=== PATIENT | male | born 1980 | race African-American/Black ===

== ENCOUNTER 2020-08-06 02:46 | Emergency (ER) | payer OTHER, BC, SELFPAY ==
--- NOTE | ~2020-08-06 | CT_ITS ---
EXAMINATION: CT abdomen pelvis wo con DATE: 08/06/2020 04:18 INDICATION: Right flank pain. Hematuria. TECHNIQUE: Computed tomography (CT) of the abdomen and pelvis was performed without intravenous contr ast. The dose-length product was 201.53 mGy-cm. Automated exposure control and iterative reconstructi on technique were employed. COMPARISON: None. FINDINGS: Lung bases are unremarkable. No significant pleural or pericardial effusion. Heart size is normal. The liver, spleen, pancreas, adrenal glands and kidneys are unremarkable. Gallbladder is pres ent. Nonobstructive bowel gas pattern. No abnormal pelvic masses or fluid collections. Normal appendi x. No renal stones or hydronephrosis. Mild lumbar spondylosis. There is disc bulge at L5-S1 with bila teral neural foraminal stenosis. IMPRESSION: 1. No acute abdominal abnormality. Reviewed, dictated and finalized at location B.
[2020-08-06 02:49] VITALS: BP 133/93; PULSE 68; RESP 17; TEMP 35.9; O2SAT 100
[2020-08-06 03:49] LABS: Add Urine Microscopic? YES; Appearance Urine Clear (Clear); Bilirubin Urine Negative (Negative); Blood Urine Negative (Negative); Color Urine Yellow (Yellow); Glucose Urine UA Negative (Negative); Ketones Urine Negative (Negative); Leukocyte Esterase Ur Negative LEU/UL (Negative); Mucus Urine Rare /lpf; Nitrate Urine Negative (Negative); Protein Urine Negative (Negative); RBC Urine 0-2 /hpf (0-2); Specific Grav Ur 1.018 (1.001-1.035); Squamous Epithelial Cell Urine Rare /hpf (Few); WBC Urine 0-3 /hpf
--- NOTE | 2020-08-06 03:53 | ED.MALEGU ---
HPI - Male Genitourinary General Chief complaint: Urogenital-Male Stated complaint: kidney pain; dark urine Time Seen by Provider: 08/06/20 03:12 History of Present Illness HPI Narrative: Severe right thoracic back pain for the past 2 days. worse for the past day. Exacerbated by movement. Associated with dark urine. No fever, dysuria, trauma, weakness, numbness. Related Data Allergies Allergy/AdvReac Type Severity Reaction Status Date / Time No Known Allergies Allergy Unverified 08/06/20 02:53 Review of Systems Review of Systems: All systems reviewed & are unremarkable except as noted in HPI and below Constitutional: Constitutional: Denies chills and Denies fever(s) Cardiovascular: Cardiovascular: Denies chest pain Respiratory: Respiratory: Denies dyspnea Gastrointestinal: Gastrointestinal: Denies abdominal pain, Denies nausea and Denies vomiting Genitourinary: Genitourinary: Denies dysuria Musculoskeletal: Musculoskeletal: Reports back pain Neurologic: Denies numbness and Denies weakness [facility] Social History Social History Gender identity (if verbalized by the patient): Male Exam Const: General: healthy appearing, no acute distress and alert Orientation/consciousness: patient oriented x3 HENMT: Head: normal to inspection Neck: Neck: normal visual inspection and no lymphadenopathy Chest: Chest palpation & inspection: no tenderness Resp: Effort & Inspection: normal respiratory effort Auscultation: clear to auscultation bilaterally, no rales, no rhonchi and no wheezes Cardio: Jugular venous distension: no JVD Rate: regular rate Rhythm: regular rhythm Heart sounds: no murmurs GI: Inspection: non-distended GI Palp: Yes Soft to palpation and No Tenderness to palpation present (GI) Back/Spine/Pelvis: Back: CVA tenderness (right) Skin: General skin exam: normal color Neuro: General: patient oriented x3 and moves all extremities Speech: normal speech Extrem: General: no edema Psych: Appearance: well kempt Affect: normal affect Course Vital Signs Vital signs: Vital Signs Temperature 35.9 C L 08/06/20 02:49 Pulse Rate 68 08/06/20 02:49 Respiratory Rate 17 08/06/20 02:49 Blood Pressure 133/93 H 08/06/20 02:49 Pulse Oximetry 100 08/06/20 02:49 Temperature 36.7 C 08/06/20 05:24 Pulse Rate 64 08/06/20 05:24 Respiratory Rate 16 08/06/20 05:24 Blood Pressure 131/84 08/06/20 05:24 Pulse Oximetry 98 08/06/20 05:24 MDM - Male Genitourinary MDM Narrative Medical decision making narrative: Mildly elevated CK. Likely dehydrated. Negative CT. Pain somewhat improved with treatment. Medical Records Attestation: I reviewed the patient's medical records. Lab Data Attestation: I reviewed the patient's lab results. Result diagrams: 08/06/20 03:52 08/06/20 03:52 Labs: Lab Results 08/06/20 08/06/20 08/06/20 Range/Units 03:40 03:51 03:52 WBC 6.6 (4.5-10.0) K/mm3 RBC 4.92 (4.6-6.20) M/mm3 Hgb 14.3 (14.0-18.0) g/dL Hct 42.1 (42.0-52.0) % MCV 85.6 (80-100) fl MCH 29.1 (26-34) pg MCHC 34.0 (32-36) g/dl RDW 12.5 (11.5-14.5) % Plt Count 294 (150-375) k/mm3 MPV 9.5 (7.4-10.4) fl Immature Gran % (Auto) 0.3 (0-0.5) % Neut % (Auto) 47.7 (45.5-73.1) % Lymph % (Auto) 37.2 (18.3-44.2) % [place] % (Auto) 11.2 H (2.6-8.5) % Eos % (Auto) 3.3 (0-4.4) % Baso % (Auto) 0.3 (0.2-1.2) % Lymph # (Auto) 2.45 (0.9-3.2) K/mm3 [place] # (Auto) 0.7 H (0.1-0.6) K/mm3 Eos # (Auto) 0.2 (0-0.3) K/mm3 Baso # (Auto) 0.0 (0.0-0.1) K/mm3 Abs Immat Gran (auto) 0.02 (0.00-0.031) K/mm3 Absolute Neuts (auto) 3.1 (1.3-6.7) K/mm3 Absolute Nucleated RBC 0.0 (0.0-0.012) K/mm3 Nucleated RBC % 0.0 (0.0-0.2) % Sodium (137-145) mmol/L Potassium (3.4-5.0) mmol/L Chloride (98-107) mmol/L Car
[2020-08-06 03:56] LABS: Basophils Percent Auto 0.3 % (0.2-1.2); Eosinophils Absolute Auto 0.2 K/mm3 (0-0.3); Eosinophils Percent Auto 3.3 % (0-4.4); Hematocrit 42.1 % (42.0-52.0); Hemoglobin 14.3 g/dL (14.0-18.0); Immature Granulocyte Absolute 0.02 K/mm3 (0.00-0.031); Immature Granulocyte Percent A 0.3 % (0-0.5); Lymphocytes Absolute Auto 2.45 K/mm3 (0.9-3.2); Lymphocytes Percent Auto 37.2 % (18.3-44.2); Mean Corpuscular Hemoglobin 29.1 pg (26-34); Mean Corpuscular Volume 85.6 fl (80-100); Mean Platelet Volume 9.5 fl (7.4-10.4); Monocytes Absolute Auto 0.7 K/mm3 (0.1-0.6); Monocytes Percent Auto 11.2 % (2.6-8.5); Neutrophils Absolute Auto 3.1 K/mm3 (1.3-6.7); Neutrophils Percent Auto 47.7 % (45.5-73.1); Platelet Count Result 294 k/mm3 (150-375); Red Blood Count 4.92 M/mm3 (4.6-6.20); Red Cell Distribution Width 12.5 % (11.5-14.5); White Blood Count 6.6 K/mm3 (4.5-10.0)
[2020-08-06 04:16] LABS: Anion Gap 8 mmol/L (8-16); Blood Urea Nitrogen 12 mg/dL (9-20); Calcium 8.6 mg/dL (8.4-10.2); Carbon Dioxide 28 mmol/L (22-30); Chloride 105 mmol/L (98-107); Creatine Kinase 403 U/L (55-170); Estimated CRCL calculation 96 ml/min; Estimated Glomerular Filt Rate > 60; Glucose 119 mg/dL (75-110); Potassium 3.7 mmol/L (3.4-5.0); Sodium 141 mmol/L (137-145)
[2020-08-06 04:27] LABS: Alanine Aminotransferase 34 U/L (4-50); Albumin Level 4.4 g/dL (3.5-5.1); Alkaline Phosphatase 64 U/L (38-126); Aspartate Amino Transferase 45 U/L (17-59); Bilirubin,Total 1.2 mg/dL (0.2-1.3); Lipase 454 U/L (23-300)
[2020-08-06] MEDS: SODIUM CHLORIDE 0.9% IV 1,000 ML 999 ML IV CONT (04:37)
[2020-08-06] MEDS: KETOROLAC 30 MG/ML VIAL (*BKC) IV PUSH (04:38)
[2020-08-06 05:24] VITALS: BP 131/84; PULSE 64; RESP 16; TEMP 36.7; O2SAT 98
== END 2020-08-06 05:24 | disposition home or self-care (01) ==
PROVIDERS: Emergency Provider Emergency Medicine
DX: M54.6 Pain in thoracic spine (principal)
CPT/HCPCS: 36415; 74176; 80048; 80076; 81001; 82550; 83690; 85025; 96361; 96374; 96375; 99284; J1885; J3010; J7030

== ENCOUNTER 2023-11-24 12:36 | Emergency (ER) | payer OTHER, SELFPAY ==
--- NOTE | ~2023-11-24 | CT_ITS ---
EXAMINATION: CT thoracic lumbar wo con DATE: 11/24/2023 15:39 INDICATION: Mid back pain. TECHNIQUE: Computed tomography (CT) of the lumbar spine was performed without intravenous contrast. A utomated exposure control and iterative reconstruction technique were employed. The dose-length produ ct was 1302.34 mGy-cm. COMPARISON: None FINDINGS: CT THORACIC SPINE: Bone alignment is normal. There is mild chronic anterior wedging of T11 and T12 v ertebral bodies. There is mildly decreased disc height at T3-T4 and T4-T5. There is multilevel mild t o moderate facet joint osteoarthritis. There is multilevel mild neural foraminal stenosis. No central canal stenosis. CT LUMBAR SPINE: Bone alignment is normal. There is mild chronic anterior wedging of L1 and L2 verteb ral bodies. There is mildly decreased disc height at L2-L3, L3-L4, and L4-L5 and severely decreased d isc height at L5-S1. Osseous central spinal canal developmentally small in lumbar spine. The followin g disc levels are specifically discussed: L1-L2: The disc does not extend beyond the endplate margin. There is mild bilateral facet joint osteo arthritis. There is no neural foraminal stenosis. There is no central canal stenosis. L2-L3: The disc is bulging. There is moderate bilateral facet joint osteoarthritis. There is mild mabel ateral neural foraminal stenosis. There is mild central canal stenosis. L3-L4: The disc is bulging. There is mild bilateral facet joint osteoarthritis. There is moderate mabel ateral neural foraminal stenosis. There is mild central canal stenosis. L4-L5: The disc is bulging. There is mild bilateral facet joint osteoarthritis. There is moderate mabel ateral neural foraminal stenosis. There is mild central canal stenosis. L5-S1: Disc is bulging. There is severe bilateral facet joint osteoarthritis. There is moderate bilat eral neural foraminal stenosis. There is mild central canal stenosis. IMPRESSION: 1. Mild thoracic spondylosis. 2. Severe lower lumbar spondylosis. Reviewed, dictated and finalized at location E. [facility]
[2023-11-24 13:11] VITALS: BP 138/88; PULSE 103; RESP 20; TEMP 36.7; O2SAT 100
--- NOTE | 2023-11-24 15:27 | ED.GENADULT ---
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 Patient reports that he started lifting with his back and felt a pop. Reports bilateral back pain in the mid to lower back. Denies any bowel or bladder dysfunction. Denies numbness or weakness. He reports being able to [place] without difficulty. Denies any further sites of pain or injury. Related Data Allergies Allergy/AdvReac Type Severity Reaction Status Date / Time No Known Allergies Allergy Verified 11/24/23 12:36 Review of Systems Review of Systems: All systems as dictated in [facility] Social History Social History (System 11/07/21 @ 15:47 by Adeel Pearson) Gender identity (if verbalized by the patient): Male Exam Narrative: GENERAL: Well-appearing, well-nourished, and in no acute distress. HEAD: Normocephalic, atraumatic. EYES: PERRLA and EOMI. ENT: Nares clear, no rhinorrhea or epistaxis. Mucous membranes moist. Oropharynx without tonsillar hypertrophy exudate or other lesions. NECK: Supple. No adenopathy or masses. CHEST: No respiratory distress. Clear to auscultation. No wheezes rales or rhonchi HEART: Regular rate and rhythm. No murmur heard. Normal peripheral pulses. ABDOMEN: Soft, nontender, nondistended, normal active bowel sounds. MSK: Normal range of motion. No edema. SKIN: Warm, dry, no rash. NEURO: Alert and oriented x4. No focal deficits. No saddle anesthesia. PSYCH: Normal mood and affect. Course Vital Signs Vital signs: Vital Signs Temperature 98.1 F 11/24/23 13:11 Pulse Rate 103 H 11/24/23 13:11 Respiratory Rate 20 11/24/23 13:11 Blood Pressure 138/88 11/24/23 13:11 Pulse Oximetry 100 11/24/23 13:11 Oxygen Delivery Room Air 11/24/23 13:11 Temperature 98.1 F 11/24/23 13:11 Pulse Rate 103 H 11/24/23 13:11 Respiratory Rate 20 11/24/23 13:11 Blood Pressure 138/88 11/24/23 13:11 Pulse Oximetry 100 11/24/23 13:11 Oxygen Delivery Room Air 11/24/23 13:11 Medical Decision Making MDM Narrative Medical decision making narrative: this is a this is a 43-year-old male who presents to the ED with chief complaint of low back injury occurring this afternoon while lifting a couch. Vitals are normal. Exam does show some the is and thoracic tenderness, however tenderness seems to be mostly paraspinal. CT thoracic and lumbar spine does not show any evidence of fracture or traumatic malalignment. No concerning findings of cauda equina. symptoms consistent with muscle strain. Patient will be given prescription for muscle relaxers and instructed to take Tylenol/ibuprofen. Pt will be discharged in stable condition. Return precautions given and supportive measures discussed. Pt is understanding and agreeable with plan for discharge and follow-up with PCP. Vital Signs Vital Signs: Vital Signs Temperature 98.1 F 11/24/23 13:11 Pulse Rate 103 H 11/24/23 13:11 Respiratory Rate 20 11/24/23 13:11 Blood Pressure 138/88 11/24/23 13:11 Pulse Oximetry 100 11/24/23 13:11 Oxygen Delivery Room Air 11/24/23 13:11 Temperature 98.1 F 11/24/23 13:11 Pulse Rate 103 H 11/24/23 13:11 Respiratory Rate 20 11/24/23 13:11 Blood Pressure 138/88 11/24/23 13:11 Pulse Oximetry 100 11/24/23 13:11 Oxygen Delivery Room Air 11/24/23 13:11 Discharge Plan Discharge Clinical Impression: Strain of lumbar region Patient Disposition: Home, Self-Care Condition: Stable Instructions: Antibiotic Form Additional Instructions: Your exam and imaging is reassuring today. This is likely just a strain of the back. Please
[2023-11-24] MEDS: ACETAMINOPHEN 500 MG TABLET 1000 MG PO (16:10)
[2023-11-24] MEDS: IBUPROFEN 600 MG TABLET PO (16:11)
== END 2023-11-24 17:21 | disposition home or self-care (01) ==
PROVIDERS: Emergency Provider Physician Assistant
DX: S39.012A Strain of muscle, fascia and tendon of lower back, initial encounter (principal); X50.0XXA Overexertion from strenuous movement or load, initial encounter
CPT/HCPCS: 72128; 72131; 99284; A9270

== ENCOUNTER 2024-07-15 07:58 | Emergency (ER) | payer BC, SELFPAY ==
--- NOTE | ~2024-07-15 | US_ITS ---
EXAMINATION: US scrotum doppler DATE: 07/15/2024 11:06 INDICATION: Severe left testicular pain. TECHNIQUE: Grayscale and Doppler ultrasound images of the testes were obtained. COMPARISON: None. FINDINGS: The right testis measures 4.7 x 2.4 x 2.6 cm. The left testis measures 4.3 x 2.5 x 2.8 cm. There is normal vascular flow to both testes. The right epididymis is normal with normal vascular shirley w. The left epididymis demonstrates enlargement of the tail with increased vascularity. There is no v aricocele or hydrocele. IMPRESSION: 1. Left-sided epididymitis. Reviewed, dictated and finalized at location A. IMPRESSION: 1. Left-sided epididymitis.
--- NOTE | ~2024-07-15 | CT_ITS ---
EXAMINATION: CT abdomen pelvis wo con DATE: 07/15/2024 08:59 INDICATION: Left flank pain. TECHNIQUE: Computed tomography (CT) of the abdomen and pelvis was performed without intravenous contr ast. Automated exposure control and iterative reconstruction technique were employed. The dose-length product was 326.01 mGy-cm. COMPARISON: CT abdomen and pelvis 08/06/2020 FINDINGS: The visualized portions of the lung bases are clear without pneumonia or pleural effusion. The heart size is normal. No pericardial effusion. There is diffuse hepatic steatosis. There is a 2.4 cm cyst in the liver. The gallbladder, pancreas, and spleen are normal. There are chronic low attenu ation masses in the adrenal glands measuring up to 14 mm on the left, consistent with adenomas. The k idneys are normal. There is no urolithiasis. There is diverticulosis of the colon without evidence of diverticulitis. There are no dilated loops of bowel. The appendix is normal. There are no pathologic ally enlarged lymph nodes. There is no free intraperitoneal fluid. There are benign bone islands in t he pelvis. There is severe lower lumbar spondylosis. There is mild chronic anterior wedging of multip le vertebral bodies. IMPRESSION: 1. No urolithiasis. 2. Diffuse hepatic steatosis. Reviewed, dictated and finalized at location A.
[2024-07-15 08:10] VITALS: BP 150/102; PULSE 83; RESP 19; TEMP 36.6; O2SAT 100
--- NOTE | 2024-07-15 08:50 | ED.MALEGU ---
HPI - Male Genitourinary General Chief complaint: Urogenital-Male Stated complaint: left flank pain Time Seen by Provider: 07/15/24 08:09 History of Present Illness HPI Narrative: 44-year-old male presenting with left flank pain. States that it has been going on for the last couple of weeks. Comes and goes. Seems to radiate into his testicles. 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 He denies dysuria or hematuria. Denies abdominal pain, nausea vomiting, diarrhea, constipation. Denies any recent injuries or traumas. Denies penile discharge. Related Data Allergies Allergy/AdvReac Type Severity Reaction Status Date / Time No Known Allergies Allergy Verified 07/15/24 08:15 Review of Systems Review of Systems: All systems reviewed & are unremarkable except as noted in HPI and below PMFSH Social History Social History Gender identity (if verbalized by the patient): Male Exam Narrative: GENERAL: Well-appearing, in no acute distress, pleasant cooperative HEAD: Normocephalic, atraumatic. EYES: PERRLA and EOMI. ENT: Grossly unremarkable NECK: Supple. CHEST: Clear to auscultation. No respiratory distress. HEART: Regular rate and rhythm ABDOMEN: Soft, nontender, nondistended; no CVA tenderness EXTREMITIES: Normal range of motion. SKIN: Warm, dry, no rash. NEURO: No focal deficits. Alert and oriented x3. PSYCH: Normal mood and affect. Course Vital Signs Vital signs: Vital Signs Temperature 97.9 F 07/15/24 08:10 Pulse Rate 83 07/15/24 08:10 Respiratory Rate 19 07/15/24 08:10 Blood Pressure 150/102 H 07/15/24 08:10 Pulse Oximetry 100 07/15/24 08:10 Oxygen Delivery Room Air 07/15/24 08:10 Temperature 97.9 F 07/15/24 08:10 Pulse Rate 68 07/15/24 11:13 Respiratory Rate 20 07/15/24 11:13 Blood Pressure 145/100 H 07/15/24 11:13 Pulse Oximetry 98 07/15/24 11:13 Oxygen Delivery Room Air 07/15/24 08:10 MDM - Male Genitourinary MDM Narrative Medical decision making narrative: 44-year-old male presenting with left flank pain, intermittently for the last few weeks. Vitals are stable. Exam remarkable for the above. CT shows no acute abnormalities. Testicular ultrasound shows left epididymitis. UA is unremarkable. Blood work is unremarkable. GC chlamydia is pending, patient adamantly denies any possibility for STIs. Declines empiric treatment, will cover him with levofloxacin. Discussed appropriate supportive care and follow-up. Patient has a PCP appointment in a couple of weeks. Appropriate return precautions given. Discharged in stable condition. Differential Diagnosis Differential diagnosis: Likely urinary tract infection, urethritis and epididymitis Medical Records Attestation: I reviewed the patient's medical records. Lab Data Attestation: I reviewed the patient's lab results. 07/15/24 09:18 07/15/24 09:18 Labs: Lab Results 07/15/24 Range/Units 09:18 WBC 4.2 L (4.5-10.0) K/mm3 RBC 4.85 (4.6-6.20) M/mm3 Hgb 14.0 (14.0-18.0) g/dL Hct 42.3 (42.0-52.0) % MCV 87.2 (80-100) fl MCH 28.9 (26-34) pg MCHC 33.1 (32-36) g/dl RDW 12.5 (11.5-14.5) % Plt Count 253 (150-375) k/mm3 MPV 9.9 (7.4-10.4) fl Immature Gran % (Auto) 0.0 (0-0.5) % Neut % (Auto) 55.4 (45.5-73.1) % Lymph % (Auto) 32.2 (18.3-44.2) % [place] % (Auto) 11.2 H (2.6-8.5) % Eos % (Auto) 0.7 (0-4.4) % Baso % (Auto) 0.5 (0.2-1.2) % Lymph # (Auto) 1.35 (0.9-3.2) K/mm3 [place] # (Auto) 0.5 (0.1-0.6) K/mm3 Eos # (Auto) 0.0 (0-0.3) K/mm3 Baso # (Auto) 0.0 (0.0-0.1) K/mm3 Abs Immat Gran (auto) 0.00 (0.00-0.031) K/mm3 Absolute Neuts (auto) 2.3 (1.3-6.7) K/mm3 Absolute Nucleated RBC 0.000 (0.0-0.012) K/mm3 Nucleated RBC % 0.0 (0.0-0.2) % Sodium 142 (137-145) mmol/L P
[2024-07-15 09:27] LABS: Basophils Percent Auto 0.5 % (0.2-1.2); Eosinophils Percent Auto 0.7 % (0-4.4); Hematocrit 42.3 % (42.0-52.0); Lymphocytes Absolute Auto 1.35 K/mm3 (0.9-3.2); Lymphocytes Percent Auto 32.2 % (18.3-44.2); Mean Corpuscular HGB Conc 33.1 g/dl (32-36); Mean Corpuscular Hemoglobin 28.9 pg (26-34); Mean Corpuscular Volume 87.2 fl (80-100); Mean Platelet Volume 9.9 fl (7.4-10.4); Monocytes Absolute Auto 0.5 K/mm3 (0.1-0.6); Monocytes Percent Auto 11.2 % (2.6-8.5); Neutrophils Absolute Auto 2.3 K/mm3 (1.3-6.7); Neutrophils Percent Auto 55.4 % (45.5-73.1); Platelet Count Result 253 k/mm3 (150-375); Red Blood Count 4.85 M/mm3 (4.6-6.20); Red Cell Distribution Width 12.5 % (11.5-14.5); White Blood Count 4.2 K/mm3 (4.5-10.0)
[2024-07-15 09:33] LABS: Add Urine Microscopic? YES; Appearance Urine Clear (Clear); Bacteria Urine None Seen /hpf; Bilirubin Urine Negative (Negative); Blood Urine Negative (Negative); Color Urine Yellow (Yellow); Glucose Urine UA Negative (Negative); Ketones Urine Negative (Negative); Leukocyte Esterase Ur Negative LEU/UL (Negative); Nitrate Urine Negative (Negative); Non Pathogenic Casts 0-2; Protein Urine Trace mg/dL (Negative); RBC Urine 0-2 /hpf (0-2); Specific Grav Ur 1.012 (1.001-1.035); Squamous Epithelial Cell Urine None Seen /hpf (Few); Urobilinogen Urine 0.2 mg/dL (<2.0); WBC Urine 0-5 /hpf (0-3); pH Urine 5.5 (5.0-9.0)
[2024-07-15 09:35] LABS: Alanine Aminotransferase 80 U/L (6-50); Albumin Level 4.6 g/dL (3.5-5.1); Alkaline Phosphatase 55 U/L (38-126); Anion Gap 10 mmol/L (4-12); Aspartate Amino Transferase 90 U/L (17-59); Bilirubin,Total 1.9 mg/dL (0.2-1.3); Blood Urea Nitrogen 10 mg/dL (9-20); Carbon Dioxide 28 mmol/L (22-30); Chloride 104 mmol/L (98-107); Estimated CRCL calculation 109 ml/min; Estimated Glomerular Filt Rate > 60; Glucose 82 mg/dL (65-110); Lipase 164 U/L (23-300); Potassium 3.9 mmol/L (3.4-5.0); Sodium 142 mmol/L (137-145)
[2024-07-15 11:13] VITALS: BP 145/100; PULSE 68; RESP 20; O2SAT 98
[2024-07-15 13:36] LABS: Chlamydia trachomatis NOT DETECTED (NOT DETECTE); Neisseria gonorrhoeae PCR NOT DETECTED (NOT DETECTE)
== END 2024-07-15 12:50 | disposition home or self-care (01) ==
PROVIDERS: Emergency Provider Emergency Medicine
DX: N45.1 Epididymitis (principal); K76.0 Fatty (change of) liver, not elsewhere classified
CPT/HCPCS: 36415; 74176; 76870; 80053; 81001; 83690; 85025; 87491; 87591; 93976; 99284

== ENCOUNTER 2024-09-19 02:46 | Day surgery (SDC) | payer BC, MEDICAID, SELFPAY ==
[2024-09-07 10:32] VITALS: BMI 23.1
[2024-09-19 12:37] VITALS: BP 177/100; PULSE 77; RESP 20; TEMP 36.2; O2SAT 100
[2024-09-19] MEDS: LACTATED RINGERS 1,000 ML 150 ML IV CONT (12:52)
--- NOTE | 2024-09-19 13:27 | P.PNAN_ITS ---
Anes - Initial Pre Proc Eval Procedure: Operation Date: 09/19/24 13:30 Proposed Procedures p Screening Colonoscopy - Thomas Bejarano DO Date/Time: 09/19/24 13:27 Surgeon: Thomas Bejarano DO Pre Op Diagnosis: Screening for malignant neoplasm of colon Patient Data Age: 44 Gender: M Height: 1.93 m Weight: 83.4 kg Last Vital Signs Temp 36.2 C L 09/19/24 12:37 Pulse 77 09/19/24 12:37 Resp 20 09/19/24 12:37 BP 177/100 H 09/19/24 12:37 Pulse Ox 100 09/19/24 12:37 O2 Del Method Room Air 09/19/24 12:37 Allergies Allergy/AdvReac Type Severity Reaction Status Date / Time No Known Allergies Allergy Verified 09/19/24 12:31 Home Medications Medication Instructions Recorded Confirmed Type losartan 25 mg tablet 25 mg PO DAILY #90 tabs 08/17/24 09/07/24 Rx Patient hx anesthesia problems: none Family hx anesthesia problems: none Results Review: All pre-operative results and documents have been reviewed as part of the pre- operative evaluation. [facility] Past Medical History Medical History (Updated 09/19/24 @ 13:28 by Everton Bolaños MD) Alcohol abuse Hypertension Surgical History Surgical History (Updated 09/19/24 @ 13:29 by Everton Bolaños MD) S/P excision of lipoma Social History Social History Smoking packs per day: 0.5 Smoking cigarettes per day: 10.0 Smoking status: Current every day smoker Tobacco type: cigarettes Alcohol intake: current Drinks per week: 4 Alcohol use details: 3-4 times per week Substance use: current Substance use type: marijuana Other substance usage details: daily Do You Feel Safe in your Home?: Yes Lack of Transportation: No Lack of Food: Never True Current Housing: I Have Housing Concerned About Future Housing: No Difficulty Paying Gas/Electric Bills: No Difficulty Paying for Meds: No Currently Unemployed: No Education: High School Diploma/GED Difficulty w/ Childcare or Family Care: No Living arrangements: alone Occupation/Education: occupation Gender identity (if verbalized by the patient): Male Sexual Orientation (if Verbalized by the Patient): Straight or Heterosexual Spiritual care concerns: No Anes - Eval Final PreProcedure Day of Procedure 09/19/24 13:27 Patient weight: normal Heart: regular rate and rhythm Lungs: clear to auscultation Airway: Mallampati scale class II Neurological: alert and oriented Last oral intake: 2 hours (water 16 oz) ASA classification: II Emergent: no Anesthetic plan: proceed Anesthesia type and monitoring: general GIVS and standard monitoring Results Review: All pre-operative results and documents have been reviewed as part of the pre- operative evaluation. Informed Consent: The patient's anesthetic plan and its attendant risks and benefits were discussed with the patient/family/POA. Questions were solicited and answers pr ovided to the satisfaction of the patient/family/POA.
--- NOTE | 2024-09-19 13:35 | P.HP_ITS ---
H&P: HPI History of Present Illness Date/Time: 09/19/24 13:35 Chief Complaint: screening for colorectal cancer Narrative: this is a 44-year-old man who presents for colonoscopy. He has never had a colonoscopy before. He denies any hematochezia or melena. He denies any family history of colon cancer. Review of Systems Review of Systems: All systems reviewed & are unremarkable except as noted in HPI and below Constitutional: Constitutional: Denies chills, Denies fever(s), Denies headache(s) and Denies weight loss Eyes: Eyes: Denies change in vision ENT: Denies dizziness, Denies headache(s), Denies neck mass and Denies throat swelling Cardiovascular: Cardiovascular: Denies chest pain, Denies lightheadedness and Denies dyspnea Respiratory: Respiratory: Denies cough, Denies dyspnea and Denies wheezing Gastrointestinal: Gastrointestinal: Denies abdominal pain, Denies change in bowel habits, Denies nausea and Denies vomiting Genitourinary: Genitourinary: Denies hematuria and Denies dysuria Musculoskeletal: Musculoskeletal: Reports as per HPI Integumentary/Breasts: Skin/Breast: Reports as per HPI Neurologic: Denies dizziness and Denies headache(s) Allergic/Immunologic: Allergic/Immunologic: Denies throat swelling and Denies wheezing [facility] Past Medical History Medical History (Updated 09/19/24 @ 13:28 by Everton Bolaños MD) Alcohol abuse Hypertension Surgical History Surgical History (Updated 09/19/24 @ 13:29 by Everton Bolaños MD) S/P excision of lipoma Social History Social History Smoking packs per day: 0.5 Smoking cigarettes per day: 10.0 Smoking status: Current every day smoker Tobacco type: cigarettes Alcohol intake: current Drinks per week: 4 Alcohol use details: 3-4 times per week Substance use: current Substance use type: marijuana Other substance usage details: daily Do You Feel Safe in your Home?: Yes Lack of Transportation: No Lack of Food: Never True Current Housing: I Have Housing Concerned About Future Housing: No Difficulty Paying Gas/Electric Bills: No Difficulty Paying for Meds: No Currently Unemployed: No Education: High School Diploma/GED Difficulty w/ Childcare or Family Care: No Living arrangements: alone Occupation/Education: occupation Gender identity (if verbalized by the patient): Male Sexual Orientation (if Verbalized by the Patient): Straight or Heterosexual Spiritual care concerns: No Meds Home Medications and Allergies Home Medications Medication Instructions Recorded Confirmed Type losartan 25 mg tablet 25 mg PO DAILY #90 tabs 08/17/24 09/07/24 Rx Allergies Allergy/AdvReac Type Severity Reaction Status Date / Time No Known Allergies Allergy Verified 09/19/24 12:31 Vital Signs Vital Signs - 24 hr 09/19/24 12:37 Temperature 97.2 F L Pulse Rate 77 Respiratory Rate 20 Blood Pressure 177/100 H Pulse Oximetry 100 Oxygen Delivery Room Air Exam Const: General: no acute distress and alert Orientation/consciousness: patient oriented x3 HENMT: Head: normocephalic and atraumatic Ears: hearing grossly normal bilaterally Face/Nose/Sinus: Normal nares present Mouth: Yes Normal oral and palatal mucosa present Eyes: Periorbital: periorbital findings normal Sclera: sclerae normal EOM: EOMs intact bilaterally Neck: Neck: normal visual inspection, no lymphadenopathy and trachea midline Chest: Chest palpation & inspection: normal inspection of the chest Resp: Effort & Inspection: normal respiratory effort Auscultation: clear to auscultation bilaterally Cardio: Jugular venous distension: no JVD Rate: regular rate Rhythm: regular rhythm Heart sounds: S1 normal heart sound present and S2 normal heart sound present Peripheral pulses: Peripheral pulses 2+ throughout GI: Inspection: normal to inspection GI Palp: Yes Soft to palpation, No Tenderness to palpation present (GI), No Guarding due to palpation present (GI) and No Rebound tenderness present Percussion: Yes normal to percussion Auscultation: normal bowel sounds : General: Yes no CVA tenderness Back/Spine/Pelvis: Back: no CVA tenderness Neuro: General: patient oriented x3, no focal motor deficits and CN's II-XI intact bilaterally Cognition (Neuro): normal cognition Speech: normal speech Motor exam (neuro): 5/5 motor strength present throughout Extrem: General: capillary refill normal and no clubbing, cyanosis or edema Assessment and Plan Assessment and plan (1) Screening for colon cancer: Code(s): Z12.11 - Encounter for screening for malignant neoplasm of colon Status: Acute Assessment and Plan: I have recommended colonoscopy. I have discussed the procedure, risks, benefits, and alternatives. Questions were answered. Patient is agreeable to proceed.
--- NOTE | 2024-09-19 14:31 | SUR.PREOP ---
Pt. reports having 16 ounces of water at 1220 today, and anesthesia team aware, will continue to monitor.
[2024-09-19 14:40] VITALS: BP 156/103; PULSE 56; RESP 28; O2SAT 100
[2024-09-19 14:50] VITALS: BP 158/111; PULSE 58; RESP 19; O2SAT 100
[2024-09-19 15:00] VITALS: BP 173/118; PULSE 59; RESP 19; O2SAT 100
== END 2024-09-19 15:13 | disposition home or self-care (01) ==
PROVIDERS: PCP Nurse Practitioner; Visit Provider Surgery
PROC: 0DJD8ZZ Inspection of Lower Intestinal Tract, Via Natural or Artificial Opening Endoscopic (ICD-10-PCS; CPT 45378; principal; 2024-09-19 13:30)
DX: Z12.11 Encounter for screening for malignant neoplasm of colon (principal); D12.5 Benign neoplasm of sigmoid colon; D12.3 Benign neoplasm of transverse colon; K62.1 Rectal polyp; K57.30 Diverticulosis of large intestine without perforation or abscess without bleeding; I10 Essential (primary) hypertension; F17.210 Nicotine dependence, cigarettes, uncomplicated; F12.90 Cannabis use, unspecified, uncomplicated; Z98.890 Other specified postprocedural states
CPT/HCPCS: 45385; 45380; 88305; J2704; J7120

== ENCOUNTER 2024-11-04 11:06 | Emergency (ER) | payer BC, MEDICAID, SELFPAY ==
[2024-11-04 11:16] VITALS: BP 180/102; PULSE 93; RESP 16; TEMP 36.2; O2SAT 99
--- NOTE | 2024-11-04 12:00 | PC.NURSE ---
Pt states was treated for epididymidis believes it was an STD instead. Denies any penile drainage or urinary symptoms. Also c/o hiccups for over a month has not tried any treatment for c/o. No hiccuping noted during his stay at this time
--- NOTE | 2024-11-04 12:35 | PC.NURSE ---
Pt eating J[employer] Pot[employer] chips tolerating them well. RN instructed pt not to eat or drink until Dr gutiérrez, educated on appropriate diet pertaining to epigastric pain. States last Etoh intake 0200 this morning
[2024-11-04 12:38] LABS: Basophils Percent Auto 0.6 % (0.2-1.2); Eosinophils Percent Auto 0.3 % (0-4.4); Hematocrit 35.9 % (42.0-52.0); Hemoglobin 12.6 g/dL (14.0-18.0); Lymphocytes Absolute Auto 0.64 K/mm3 (0.9-3.2); Lymphocytes Percent Auto 19.9 % (18.3-44.2); Mean Corpuscular HGB Conc 35.1 g/dl (32-36); Mean Corpuscular Hemoglobin 29.9 pg (26-34); Mean Corpuscular Volume 85.1 fl (80-100); Mean Platelet Volume 9.3 fl (7.4-10.4); Monocytes Absolute Auto 0.4 K/mm3 (0.1-0.6); Monocytes Percent Auto 10.9 % (2.6-8.5); Neutrophils Absolute Auto 2.2 K/mm3 (1.3-6.7); Neutrophils Percent Auto 68.3 % (45.5-73.1); Platelet Count Result 210 k/mm3 (150-375); Red Blood Count 4.22 M/mm3 (4.6-6.20); Red Cell Distribution Width 12.7 % (11.5-14.5); White Blood Count 3.2 K/mm3 (4.5-10.0)
[2024-11-04 12:47] LABS: Alanine Aminotransferase 201 U/L (6-50); Albumin Level 4.5 g/dL (3.5-5.1); Alkaline Phosphatase 48 U/L (38-126); Anion Gap 8 mmol/L (4-12); Aspartate Amino Transferase 404 U/L (17-59); Bilirubin,Total 3.1 mg/dL (0.2-1.3); Blood Urea Nitrogen 13 mg/dL (9-20); Calcium 9.1 mg/dL (8.4-10.2); Carbon Dioxide 28 mmol/L (22-30); Chloride 100 mmol/L (98-107); Estimated CRCL calculation 122 ml/min; Estimated Glomerular Filt Rate > 60; Glucose 203 mg/dL (65-110); Lipase 330 U/L (23-300); Magnesium 1.8 mg/dL (1.6-2.3); Potassium 3.7 mmol/L (3.4-5.0); Sodium 136 mmol/L (137-145)
[2024-11-04 12:50] LABS: Bacteria Urine None Seen /hpf; Non Pathogenic Casts 0-2; RBC Urine 0-2 /hpf (0-2); Squamous Epithelial Cell Urine None Seen /hpf (Few); WBC Urine 0-5 /hpf (0-3)
[2024-11-04 12:53] LABS: Add Urine Microscopic? YES; Appearance Urine Clear (Clear); Bilirubin Urine 1+ (Negative); Blood Urine Negative (Negative); Color Urine Orange (Yellow); Glucose Urine UA Negative (Negative); Ketones Urine Trace mg/dL (Negative); Leukocyte Esterase Ur Trace LEU/UL (Negative); Nitrate Urine Negative (Negative); Protein Urine 1+ mg/dL (Negative); Specific Grav Ur 1.025 (1.001-1.035); pH Urine 5.5 (5.0-9.0)
[2024-11-04 14:09] LABS: Chlamydia trachomatis NOT DETECTED (NOT DETECTE); Neisseria gonorrhoeae PCR NOT DETECTED (NOT DETECTE)
[2024-11-04 15:09] VITALS: BP 145/98; PULSE 88; RESP 16; TEMP 36.6; O2SAT 100
[2024-11-04 15:43] LABS: Trichomonas Vag PCR NOT DETECTED (NOT DETECTE)
--- NOTE | 2024-11-04 16:03 | ED_ITS ---
HPI - General Adult General Chief complaint: Urogenital-Male Stated complaint: hiccups, STD check Time Seen by Provider: 11/04/24 11:49 History of Present Illness HPI narrative: Patient 34-year-old gentleman presents emergency department with chief complaint of intermittent hiccups and also wants to be tested for STDs patient also reports that he has had some epigastric discomfort for some time reports that he has not seen his primary care provider and reports that he does drink a fair amount of alcohol each day. Related Data Allergies Allergy/AdvReac Type Severity Reaction Status Date / Time No Known Allergies Allergy Verified 09/19/24 12:31 Review of Systems 2 Review of Systems: A 10 system review of systems was completed on the patient and is negative except for what is stated in the HPI. Nursing and ancillary documentation was reviewed. PMFSH Past Medical History Medical History Alcohol abuse Hypertension Surgical History Surgical History S/P excision of lipoma Social History Social History Smoking packs per day: 0.5 Smoking cigarettes per day: 10.0 Smoking status: Current every day smoker Tobacco type: cigarettes Alcohol intake: current Drinks per week: 4 Alcohol use details: 3-4 times per week Substance use: current Substance use type: marijuana Other substance usage details: daily Do You Feel Safe in your Home?: Yes Lack of Transportation: No Lack of Food: Never True Current Housing: I Have Housing Concerned About Future Housing: No Difficulty Paying Gas/Electric Bills: No Difficulty Paying for Meds: No Currently Unemployed: No Education: High School Diploma/GED Difficulty w/ Childcare or Family Care: No Living arrangements: alone Occupation/Education: occupation Gender identity (if verbalized by the patient): Male Sexual Orientation (if Verbalized by the Patient): Straight or Heterosexual Spiritual care concerns: No Exam 2 Narrative: GENERAL: Well-appearing, well-nourished, and in no acute distress. HEAD: Normocephalic, atraumatic. EYES: PERRLA and EOMI. ENT: Nares clear, no rhinorrhea or epistaxis. Mucous membranes moist. NECK: Supple. CHEST: Clear to auscultation. No respiratory distress. HEART: Regular rate and rhythm. No murmur heard. Normal peripheral pulses. ABDOMEN: Soft, minimal tenderness of the epigastric region, no right upper quadrant tenderness nondistended, normal active bowel sounds. EXTREMITIES: Normal range of motion. No edema. SKIN: Warm, dry, no rash. NEURO: No focal deficits. Alert and oriented x3. PSYCH: Normal mood and affect. Course Vital Signs Vital signs: Vital Signs Temperature 36.2 C L 11/04/24 11:16 Pulse Rate 93 11/04/24 11:16 Respiratory Rate 16 11/04/24 11:16 Blood Pressure 180/102 H 11/04/24 11:16 Pulse Oximetry 99 11/04/24 11:16 Temperature 36.6 C 11/04/24 15:09 Pulse Rate 88 11/04/24 15:09 Respiratory Rate 16 11/04/24 15:09 Blood Pressure 145/98 H 11/04/24 15:09 Pulse Oximetry 100 11/04/24 15:09 Medical Decision Making [facility] Narrative Medical decision making narrative: differential diagnosis includes STI, UTI, laboratory studies were obtained patient white count 3.2 electrolytes are within normal limits bilirubin was 3.1 and AST and ALT were slightly elevated the patient has history of elevated bilirubin in the past the patient will be discharged home with impression of gastritis chlamydia gonorrhea and Trichomonas were negative Vital Signs Vital Signs: Vital Signs Temperature 36.2 C L 11/04/24 11:16 Pulse Rate 93 11/04/24 11:16 Respiratory Rate 16 11/04/24 11:16 Blood Pressure 180/102 H 11/04/24 11:16 Pulse Oximetry 99 11/04/24 11:16 Temperature 36.6 C 11/04/24 15:09 Pulse Rate 88 11/04/24 15:09 Respiratory Rate 16 11/04/24 15:09 Blood Pressure 145/98 H 11/04/24 15:09 Pulse Oximetry 100 11/04/24 15:09 Lab Data 11/04/24 12:27 11/04/24 12:27 Labs: Lab Results 11/04/24 Range/Units 12: WBC 3.2 L (4.5-10.0) K/mm3 RBC 4.22 L (4.6-6.20) M/mm3 Hgb 12.6 L (14.0-18.0) g/dL Hct 35.9 L (42.0-52.0) % MCV 85.1 (80-100) fl MCH 29.9 (26-34) pg MCHC 35.1 (32-36) g/dl RDW 12.7 (11.5-14.5) % Plt Count 210 (150-375) k/mm3 MPV 9.3 (7.4-10.4) fl Immature Gran % (Auto) 0.0 (0-0.5) % Neut % (Auto) 68.3 (45.5-73.1) % Lymph % (Auto) 19.9 (18.3-44.2) % [place] % (Auto) 10.9 H (2.6-8.5) % Eos % (Auto) 0.3 (0-4.4) % Baso % (Auto) 0.6 (0.2-1.2) % Lymph # (Auto) 0.64 L (0.9-3.2) K/mm3 [place] # (Auto) 0.4 (0.1-0.6) K/mm3 Eos # (Auto) 0.0 (0-0.3) K/mm3 Baso # (Auto) 0.0 (0.0-0.1) K/mm3 Abs Immat Gran (auto) 0.00 (0.00-0.031) K/mm3 Absolute Neuts (auto) 2.2 (1.3-6.7) K/mm3 Absolute Nucleated RBC 0.000 (0.0-0.012) K/mm3 Nucleated RBC % 0.0 (0.0-0.2) % Sodium 136 L (137-145) mmol/L Potassium 3.7 (3.4-5.0) mmol/L Chloride 100 (98-107) mmol/L Carbon Dioxide 28 (22-30) mmol/L Anion Gap 8 (4-12) mmol/L BUN 13 (9-20) mg/dL Creatinine 0.80 (0.7-1.3) mg/dL Estim Creat Clear Calc 122 ml/min Estimated GFR > 60 (59 - ) Glucose 203 H (65-110) mg/dL Calcium 9.1 (8.4-10.2) mg/dL Magnesium 1.8 (1.6-2.3) mg/dL Total Bilirubin 3.1 H (0.2-1.3) mg/dL AST 404 H (17-59) U/L ALT 201 H (6-50) U/L Alkaline Phosphatase 48 (38-126) U/L Total Protein 7.0 (6.3-8.2) g/dL Albumin 4.5 (3.5-5.1) g/dL Lipase 330 H (23-300) U/L Urine Color [place] H (Yellow) Urine Appearance Clear (Clear) Urine pH 5.5 (5.0-9.0) Ur Specific [place] 1.025 (1.001-1.035) Urine Protein 1+ H (Negative) mg/dL Urine Glucose (UA) Negative (Negative) mg/dL Urine Ketones Trace H (Negative) mg/dL Ur Blood (Man) Negative (Negative) Urine Nitrate Negative (Negative) Urine Bilirubin 1+ H (Negative) Urine Urobilinogen 1.0 (<2.0) mg/dL Leukocyte Esterase Rfl Trace H (Negative) [place]/UL Urine RBC 0-2 (0-2) /hpf Urine WBC 0-5 (0-3) /hpf Ur Squamous Epith Cells None seen (Few) /hpf Urine Bacteria None seen /hpf Urine Casts 0-2 C. trachomatis (PCR) Not detected (NOT DETECTE) N. gonorrhoeae (PCR) Not detected (NOT DETECTE) T. vaginalis (PCR) Not detected (NOT DETECTE) Discharge Plan Discharge Clinical Impression: Gastritis Patient Disposition: Home, Self-Care Condition: Stable Instructions: Antibiotic Form Additional Instructions: your liver enzymes are mildly elevated today. your bilirubin has been elevated in the past and it is recommended that you follow-up with your primary care provider is also recommended that you stop consuming alcohol the chlamydia and gonorrhea test were negative the Trichomonas test was also negative. If you wish further testing for sexual transmitted diseases it is recommended that you follow-up with either your primary care provider or the health department. Patient Language: Tunisian Prescriptions: New pantoprazole [Protonix] 40 mg tablet,delayed release (DR/EC) 40 mg PO HS 28 Days Qty: 28 0RF No Action losartan 25 mg tablet 25 mg PO DAILY Qty: 90 0RF Follow-up/Referrals: Yakel,Melanie A., FEEDER/FOLDER [Primary Care Provider] - Time of Disposition: 16:12
== END 2024-11-04 16:26 | disposition home or self-care (01) ==
PROVIDERS: Emergency Provider Emergency Medicine; PCP Nurse Practitioner
DX: K29.70 Gastritis, unspecified, without bleeding (principal); I10 Essential (primary) hypertension; F10.10 Alcohol abuse, uncomplicated; F17.210 Nicotine dependence, cigarettes, uncomplicated; Z11.3 Encounter for screening for infections with a predominantly sexual mode of transmission
CPT/HCPCS: 36415; 80053; 81001; 83690; 83735; 85025; 87491; 87591; 87661; 99283

== ENCOUNTER 2024-11-29 09:22 | Outpatient (CLI) | payer BC, MEDICAID, SELFPAY ==
[2024-11-29 12:38] LABS: Eosinophils Percent Auto 0.7 % (0-4.4); Hematocrit 36.4 % (42.0-52.0); Immature Granulocyte Absolute 0.01 K/mm3 (0.00-0.031); Immature Granulocyte Percent A 0.3 % (0-0.5); Lymphocytes Absolute Auto 0.98 K/mm3 (0.9-3.2); Lymphocytes Percent Auto 32.2 % (18.3-44.2); Mean Corpuscular Hemoglobin 29.1 pg (26-34); Mean Corpuscular Volume 88.1 fl (80-100); Mean Platelet Volume 9.9 fl (7.4-10.4); Monocytes Absolute Auto 0.4 K/mm3 (0.1-0.6); Monocytes Percent Auto 12.8 % (2.6-8.5); Neutrophils Absolute Auto 1.6 K/mm3 (1.3-6.7); Platelet Count Result 214 k/mm3 (150-375); Red Blood Count 4.13 M/mm3 (4.6-6.20); Red Cell Distribution Width 13.6 % (11.5-14.5)
[2024-11-29 12:49] LABS: Add Urine Microscopic? YES; Appearance Urine Clear (Clear); Bacteria Urine None Seen /hpf; Bilirubin Urine Negative (Negative); Blood Urine Negative (Negative); Color Urine Yellow (Yellow); Glucose Urine UA Negative (Negative); Ketones Urine Trace mg/dL (Negative); Leukocyte Esterase Ur Negative LEU/UL (Negative); Nitrate Urine Negative (Negative); Non Pathogenic Casts 0-2; Protein Urine Trace mg/dL (Negative); RBC Urine 0-2 /hpf (0-2); Specific Grav Ur 1.019 (1.001-1.035); Squamous Epithelial Cell Urine None Seen /hpf (Few); WBC Urine 0-5 /hpf (0-3); pH Urine 5.5 (5.0-9.0)
[2024-11-29 13:17] LABS: Alanine Aminotransferase 86 U/L (6-50); Albumin Level 4.6 g/dL (3.5-5.1); Alkaline Phosphatase 46 U/L (38-126); Anion Gap 8 mmol/L (4-12); Aspartate Amino Transferase 117 U/L (17-59); Bilirubin,Total 1.4 mg/dL (0.2-1.3); Blood Urea Nitrogen 10 mg/dL (9-20); Calcium 9.2 mg/dL (8.4-10.2); Carbon Dioxide 32 mmol/L (22-30); Chloride 106 mmol/L (98-107); Estimated Glomerular Filt Rate > 60; Glucose 88 mg/dL (65-110); Potassium 4.2 mmol/L (3.4-5.0); Sodium 146 mmol/L (137-145)
[2024-11-29 13:26] LABS: Rapid Plasma Reagin Non-Reactive (NonReactive)
[2024-11-29 13:40] LABS: Hepatitis B Surface Antigen Negative (Negative)
[2024-11-29 13:55] LABS: HIV 1/2 Ab P24 Ag Result Negative (Negative)
[2024-11-29 13:57] LABS: Hepatitis C Virus Antibody Negative (Negative)
[2024-11-29 14:12] LABS: Chlamydia trachomatis NOT DETECTED (NOT DETECTE); Neisseria gonorrhoeae PCR NOT DETECTED (NOT DETECTE)
[2024-11-29 14:42] LABS: Iron 120 ug/dL (49-181)
[2024-11-29 14:51] LABS: Percent Iron Saturation 38 % (20-50)
[2024-11-29 14:58] LABS: Immature Reticulocyte Fraction 8.1 % (3.0-15.9); Reticulocyte Hemoglobin Conten 33.3 pg (28.2-36.6); Reticulocyte Percent 0.89 % (0.7-4.3); Reticulocytes Absolute 0.04 10^6/uL (0.02-0.10)
[2024-11-29 15:50] LABS: Folic Acid 5.6 ng/mL (2.76->20)
== END 2024-11-29 09:23 | disposition home or self-care (01) ==
LOC: ANHGOSHLAB 09:24
PROVIDERS: PCP Nurse Practitioner; Visit Provider Nurse Practitioner
DX: D64.9 Anemia, unspecified (principal); R17 Unspecified jaundice; R30.0 Dysuria
CPT/HCPCS: 36415; 80053; 81001; 82607; 82728; 82746; 83540; 83550; 85025; 85046; 86592; 86703; 86803; 87340; 87491; 87529; 87591; G0432

== ENCOUNTER 2024-12-13 16:14 | Outpatient (CLI) | payer BC, MEDICAID, SELFPAY ==
--- NOTE | ~2024-12-13 | US_ITS ---
EXAMINATION: US scrotum doppler DATE: 12/13/2024 16:53 INDICATION: Left testicular pain TECHNIQUE: Testicular sonogram utilizing grayscale and Doppler COMPARISON: None. FINDINGS: The right testis measures 3.3 x 2.0 x 3.2 cm. The left testis measures 3.9 x 2.2 x 2.9 cm. Symmetric normal grayscale appearance to both testes. Ventricles identified in both testes which appears mildly increased in prominence on the left. The right epididymis is normal with normal vascular flow. The l eft epididymis is normal with normal vascular flow. There is no varicocele or hydrocele. IMPRESSION: 1. Asymmetric mildly increased vascular flow at the left testis and could not exclude orchitis altho ugh the bilateral epididymides appear normal with no evident associated epididymitis. Reviewed, dictated and finalized at location A. NG SPEC IMPRESSION: 1. Asymmetric mildly increased vascular flow at the left testis and could not exclude orchitis although the bilateral epididymides appear normal with no evid ent associated epididymitis.
== END 2024-12-13 16:15 | disposition home or self-care (01) ==
PROVIDERS: PCP Nurse Practitioner; Visit Provider Nurse Practitioner
DX: N50.819 Testicular pain, unspecified (principal)
CPT/HCPCS: 76870; 93976

== ENCOUNTER 2024-12-22 15:32 | Outpatient (CLI) | payer BC, MEDICAID, SELFPAY ==
[2024-12-22 19:36] LABS: Add Urine Microscopic? YES; Appearance Urine Clear (Clear); Bacteria Urine None Seen /hpf; Bilirubin Urine Negative (Negative); Blood Urine Negative (Negative); Color Urine Dark Yellow (Yellow); Glucose Urine UA Negative (Negative); Ketones Urine Trace mg/dL (Negative); Leukocyte Esterase Ur Trace LEU/UL (Negative); Nitrate Urine Negative (Negative); Non Pathogenic Casts 0-2; Protein Urine Trace mg/dL (Negative); RBC Urine 0-2 /hpf (0-2); Squamous Epithelial Cell Urine None Seen /hpf (Few); WBC Urine 0-5 /hpf (0-3); pH Urine 5.5 (5.0-9.0)
[2024-12-22 19:57] LABS: Prostate Specific Antigen 1.4 ng/mL (< OR = 4.0)
== END 2024-12-22 15:33 | disposition home or self-care (01) ==
LOC: ANHGOSHLAB 15:34
PROVIDERS: PCP Nurse Practitioner; Visit Provider Nurse Practitioner
DX: N50.819 Testicular pain, unspecified (principal); R30.0 Dysuria; Z12.5 Encounter for screening for malignant neoplasm of prostate
CPT/HCPCS: 36415; 81001; 84153; G0103

== ENCOUNTER 2025-05-01 03:44 | Emergency (ER) | payer BC, MEDICAID, SELFPAY ==
[2025-05-01 03:52] VITALS: PULSE 78; RESP 20; TEMP 36.9; O2SAT 100
--- NOTE | 2025-05-01 04:06 | ED_ITS ---
HPI - Back Pain/Injury General Chief Complaint: Back Pain/Injury Stated Complaint: lower back pain Time Seen by Provider: 05/01/25 03:54 History of Present Illness HPI Narrative: Patient is a 44-year-old male who presents to the emergency department this evening complaining of right lower back strain. Patient states that he was getting out of bed and heard a pop and since then has been having some right lumbar paraspinal muscle pain. Patient has been using icy Hot with minimal to n o relief of symptoms. Denies any falls or recent trauma. 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 Patient did ambulate to the emergency department and has no trouble walking. Admits that the pain is positional. Denies any additional symptoms or concerns. Related Data Allergies Allergy/AdvReac Type Severity Reaction Status Date / Time No Known Allergies Allergy Verified 05/01/25 03:54 Review of Systems Review of Systems: All systems are reviewed and are negative unless stated otherwise in the HPI. COUNT INCLUDES THE [facility] Past Medical History Medical History Hypertension Alcohol abuse Surgical History Surgical History S/P excision of lipoma Social History Social History Smoking packs per day: 0.5 Smoking cigarettes per day: 10.0 Smoking status: Current every day smoker Tobacco type: cigarettes Alcohol intake: current Drinks per week: 4 Alcohol use details: 3-4 times per week Substance use: current Substance use type: marijuana Other substance usage details: daily Do You Feel Safe in your Home?: Yes Lack of Transportation: No Lack of Food: Never True Current Housing: I Have Housing Concerned About Future Housing: No Difficulty Paying Gas/Electric Bills: No Difficulty Paying for Meds: No Currently Unemployed: No Education: High School Diploma/GED Difficulty w/ Childcare or Family Care: No Living arrangements: alone Occupation/Education: occupation Gender identity (if verbalized by the patient): Male Sexual Orientation (if Verbalized by the Patient): Straight or Heterosexual Spiritual care concerns: No Exam Narrative: General: Alert, awake, afebrile, in no acute distress. HEENT: PERRL, no rhinorrhea, no post nasal drip, oropharynx clear. Neck: Trachea midline, no JVD, no lymphadenopathy. Cardiovascular: Regular rate and rhythm, no murmurs, rubs or gallops, no peripheral edema. Respiratory: Clear to auscultation bilaterally, no tachypnea, no wheezing, no rhonchi, no rubs, no respiratory distress. Abdomen: Soft, nontender, nondistended, no rebound, no guarding, no peritoneal signs. Musculoskeletal: No joint swelling or deformity, normal muscle tone. Back: Reproducible tenderness palpation over the right paraspinal lumbar region. Skin: No rashes or petechia, no signs of infection. Psychiatric: Alert and oriented, normal behavior and judgment for situation. Neurological: Alert and oriented to person, place, and time. Follows all commands. No focal deficits, speech is clear and fluent. Course Vital Signs Vital signs: Vital Signs Temperature 98.4 F 05/01/25 03:52 Pulse Rate 78 05/01/25 03:52 Respiratory Rate 20 05/01/25 03:52 Pulse Oximetry 100 05/01/25 03:52 Temperature 98.4 F 05/01/25 03:52 Pulse Rate 78 05/01/25 03:52 Respiratory Rate 20 05/01/25 03:52 Pulse Oximetry 100 05/01/25 03:52 MDM - Back Pain/Injury MDM Narrative Medical decision making narrative: The patient was evaluated by myself in the emergency department. History is obtained from patient who is an independent historian and physical exam was performed. External medical records were reviewed at this time. Patient was administered 15 mg of IM Toradol, 1 g of oral Tylenol and a Lidoderm patch. On repeat assessment, patient states that his symptoms have signifi cantly improved. Per chart review, patient presents to the emergency department with a similar presentation and at that time he did have a CT of his lumbar spine revealing the following: L1-L2: The disc does not extend beyond the endplate margin. There is mild bilateral facet joint osteoarthritis. There is no neural foraminal stenosis. There is no central canal stenosis. L2-L3: The disc is bulging. There is moderate bilateral facet joint osteoarthritis. There is mild bilateral neural foraminal stenosis. There is mild central canal stenosis. L3-L4: The disc is bulging. There is mild bilateral facet joint osteoarthritis. There is moderate bilateral neural foraminal stenosis. There is mild central canal stenosis. L4-L5: The disc is bulging. There is mild bilateral facet joint osteoarthritis. There is moderate bilateral neural foraminal stenosis. There is mild central canal stenosis. L5-S1: Disc is bulging. There is severe bilateral facet joint osteoarthritis. There is moderate bilateral neural foraminal stenosis. There is mild central canal stenosis. Patient states that he has been having intermittent back pain sometimes associated with sciatica. States that he has not followed up with any spinal surgeon. Patient was informed that he will be referred to a spinal specialist as I do recommend obtaining an MRI of his lumbar spine for further evaluation and patient is in agreement. Patient is requesting a work note for a few days off of work until his symptoms resolve since he does work in construction which will only precipitated his symptoms. I did inform him there will also be prescribing muscle relaxer as this will help with his symptoms until he follows up with neurosurgeon/Orthopedic Spine. Differential diagnosis considerations include musculoskeletal strain/thoracolumbar strain, herniated discs, sciatica. Comorbidities impacting this visit include history of severe lower lumbar spondylosis. I have evaluated and discussed social determinants of health with the patient that could potentially impact subsequent diagnosis and treatment plans. On repeat assessment of the patient, reevaluation revealed that the patient is doing well and is in no acute distress. Patient symptoms have improved since he arrived to our emergency department. Repeat vital signs were all reviewed and noted to be stable. Differential diagnosis and treatment plan were discussed with the patient at bedside. Patient agrees with discussion and after shared medical decision making agrees with discharge. All questions were answered to the patient's satisfaction. Patient was provided with spinal specialist/neurosurgeon to follow up with and instructed to call tomorrow to set up a follow-up appointment to be seen within the next 3-5 days. Patient was provided with strict return precautions and instructed to return to the emergency department if any new or worsening symptoms develop. The patient was discharged in stable condition. Discharge Plan Discharge Clinical Impression: Strain of lumbar region Patient Disposition: Home Condition: Improved Instructions: Antibiotic Form, Low Back Strain (ED) Additional Instructions: Please follow-up with the spinal surgeon you were provided with today within the next 3-5 days. Return to the ED if any new or worsening symptoms develop. Take the prescribed muscle relaxer as needed for your muscle sprain. Patient Language: Georgian Prescriptions: New methocarbamol 750 mg tablet 750 mg PO HS Qty: 14 0RF No Action losartan 25 mg tablet 25 mg PO DAILY Qty: 90 2RF pantoprazole [Protonix] 40 mg tablet,delayed release (DR/EC) 40 mg PO HS 28 Days Qty: 28 0RF Follow-up/Referrals: Shaan Jimenez MD [Physician] - 3 Days Melanie Storey NP [Primary Care Provider] - Stand Alone Forms: Work/School Release IP Time of Disposition: 04:31
[2025-05-01] MEDS: KETOROLAC 15 MG/ML VIAL (*BKC) IM (04:11)
[2025-05-01] MEDS: LIDOCAINE 5% PATCH 1 PATCH TRANSDERM (04:14)
[2025-05-01] MEDS: ACETAMINOPHEN 500 MG TABLET 1000 MG PO (04:15)
[2025-05-01 04:18] VITALS: BP 165/110; O2SAT 100
[2025-05-01 04:30] VITALS: O2SAT 100
[2025-05-01 04:45] VITALS: BP 169/110; PULSE 74; RESP 18; TEMP 36.5; O2SAT 100
== END 2025-05-01 04:42 | disposition home or self-care (01) ==
LOC: ANHED 04:36
PROVIDERS: Emergency Provider Emergency Medicine; PCP Nurse Practitioner
DX: S39.012A Strain of muscle, fascia and tendon of lower back, initial encounter (principal); I10 Essential (primary) hypertension; F17.210 Nicotine dependence, cigarettes, uncomplicated; X58.XXXA Exposure to other specified factors, initial encounter
CPT/HCPCS: 96372; 99283; A9270; J1885

== ENCOUNTER 2025-05-03 05:19 | Emergency (ER) | payer BC, MEDICAID, SELFPAY ==
[2025-05-03 05:23] VITALS: BP 159/109; PULSE 82; TEMP 36.8; O2SAT 99
[2025-05-03 05:37] VITALS: BP 134/75; PULSE 79; RESP 18; TEMP 36.6; O2SAT 99
--- NOTE | 2025-05-03 06:16 | ED_ITS ---
HPI - General Adult General Chief complaint: Back Pain/Injury Stated complaint: back pain Time Seen by Provider: 05/03/25 05:24 History of Present Illness HPI narrative: This is a 44-year-old male requesting a work note. Patient was seen here 2 days ago after is exacerbating his chronic back pain. He is working on getting short term disability but he is not ready to return to work yet. There has been no changes in his condition. 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 He does not have any urinary retention bowel incontinence or lower extremity weakness. Patient has not called the primary care physician Related Data Allergies Allergy/AdvReac Type Severity Reaction Status Date / Time No Known Allergies Allergy Verified 05/03/25 05:20 PMFSH Past Medical History Medical History Hypertension Alcohol abuse Surgical History Surgical History S/P excision of lipoma Social History Social History Smoking packs per day: 0.5 Smoking cigarettes per day: 10.0 Smoking status: Current every day smoker Tobacco type: cigarettes Alcohol intake: current Drinks per week: 4 Alcohol use details: 3-4 times per week Substance use: current Substance use type: marijuana Other substance usage details: daily Do You Feel Safe in your Home?: Yes Lack of Transportation: No Lack of Food: Never True Current Housing: I Have Housing Concerned About Future Housing: No Difficulty Paying Gas/Electric Bills: No Difficulty Paying for Meds: No Currently Unemployed: No Education: High School Diploma/GED Difficulty w/ Childcare or Family Care: No Living arrangements: alone Occupation/Education: occupation Gender identity (if verbalized by the patient): Male Sexual Orientation (if Verbalized by the Patient): Straight or Heterosexual Spiritual care concerns: No Exam Narrative: APPEARANCE: No apparent distress. Head: atraumatic. EYES: EOMI, NOSE: Atraumatic NECK: Trachea midline RESPIRATORY: No increased rate of breathing CARDIOVASCULAR: RRR, ABDOMINAL: Non-distended MUSCULOSKELETAl: No obvious deformities NEURO: Alert. Moving 4/4 extremities SKIN:: Warm, dry. Normal color PSYCHIATRIC: Normal affect Course Vital Signs Vital signs: Vital Signs Temperature 98.2 F 05/03/25 05:23 Pulse Rate 82 05/03/25 05:23 Blood Pressure 159/109 H 05/03/25 05:23 Pulse Oximetry 99 05/03/25 05:23 Oxygen Delivery Room Air 05/03/25 05:23 Temperature 97.8 F 05/03/25 05:37 Pulse Rate 79 05/03/25 05:37 Respiratory Rate 18 05/03/25 05:37 Blood Pressure 134/75 05/03/25 05:37 Pulse Oximetry 99 05/03/25 05:37 Oxygen Delivery Room Air 05/03/25 05:37 Medical Decision Making MDM Narrative Medical decision making narrative: -Course: 44-year-old male presenting with lower back strain requesting a work note. Physical exam shows some right paralumbar tightness. No red flags on history and physical. I explained the patient that we do not handle claims here in the he will have to follow up with either his employee health or his primary care physician and he verbalized understanding. He will call us primary care physician in the open this morning. Patient has pain medication at home and does not require any prescriptions. Patient discharged with return precautions. Vital Signs Vital Signs: Vital Signs Temperature 98.2 F 05/03/25 05:23 Pulse Rate 82 05/03/25 05:23 Blood Pressure 159/109 H 05/03/25 05:23 Pulse Oximetry 99 05/03/25 05:23 Oxygen Delivery Room Air 05/03/25 05:23 Temperature 97.8 F 05/03/25 05:37 Pulse Rate 79 05/03/25 05:37 Respiratory Rate 18 05/03/25 05:37 Blood Pressure 134/75 05/03/25 05:37 Pulse Oximetry 99 05/03/25 05:37 Oxygen Delivery Room Air 05/03/25 05:37 Discharge Plan Discharge Clinical Impression: Back pain Patient Disposition: Home Condition: Stable Instructions: Antibiotic Form, Acute Low Back Pain (ED) Additional Instructions: Please see follow-up with your primary care physician to get help with your short term disability claim. If you develop any weakness your lower extremities, inability to urinate or bowel incontinence return to ED for re- evaluation. Patient Language: Salvadorean Prescriptions: No Action losartan 25 mg tablet 25 mg PO DAILY Qty: 90 2RF pantoprazole [Protonix] 40 mg tablet,delayed release (DR/EC) 40 mg PO HS 28 Days Qty: 28 0RF methocarbamol 750 mg tablet 750 mg PO HS Qty: 14 0RF Follow-up/Referrals: Melanie Storey NP [Primary Care Provider] - 1 Day Stand Alone Forms: Work/School Release IP
== END 2025-05-03 06:32 | disposition home or self-care (01) ==
PROVIDERS: Emergency Provider Emergency Medicine; PCP Nurse Practitioner
DX: M54.9 Dorsalgia, unspecified (principal); G89.29 Other chronic pain; I10 Essential (primary) hypertension; F17.210 Nicotine dependence, cigarettes, uncomplicated
CPT/HCPCS: 99281

== ENCOUNTER 2025-05-10 13:32 | Outpatient (CLI) | payer BC, MEDICAID, SELFPAY ==
--- NOTE | ~2025-05-10 | XR_ITS ---
3 VIEWS LUMBAR SPINE Ordering provider: Melanie Storey NP History: . M54.16 - Radiculopathy, lumbar region . Comparison: None. FINDINGS: VERTEBRAL BODIES: No visible fracture or subluxation. Degenerative changes of the spine. DISK SPACES: Narrowing of the disc L3-L4, L4-L5 and L5-S1. SOFT TISSUES: Normal. IMPRESSION: No acute osseous abnormality lumbar spine. Multilevel degenerative disc. Reviewed, dictated and finalized at location A.
== END 2025-05-10 13:33 | disposition home or self-care (01) ==
PROVIDERS: PCP Nurse Practitioner; Visit Provider Nurse Practitioner
DX: M54.16 Radiculopathy, lumbar region (principal); M51.369 Other intervertebral disc degeneration, lumbar region without mention of lumbar back pain or lower extremity pain
CPT/HCPCS: 72110

== ENCOUNTER 2025-06-13 15:30 | Outpatient (RCR) | payer BC, MEDICAID, SELFPAY ==
--- NOTE | 2025-05-16 13:57 | OPREHPOC ---
Outpatient Therapy Plan of Care This is a Multidisciplinary Plan of Care that may contain components documented by all disciplines (PT, OT, and ST.) PT Problem 1 PT Problem #1 Knowledge Deficit PT Goal 1 Goal / Goal Update 1. Patient to demonstrate independence with HEP for improved self-reliance of symptom management. Target Visit 4 PT Problem 2 PT Problem #2 Pain PT Goal 1 Goal / Goal Update 1. Patient to decrease subjective reports of pain to <2/10 for improved ADL tolerance. Target Visit 10 PT Problem 3 PT Problem #3 Impaired Flexibility PT Goal 1 Goal / Goal Update 1. Patient will demonstrate an increase in hamstring flexibility, improving passive knee extension in the 90/90 position from to within -20 ? of full extension to allow for improved sitting posture and reduced strain during gait. Target Visit 10 PT Problem 4 PT Problem #4 Impaired Functional Mobility PT Goal 1 Goal / Goal Update 1. Pt will demostrte the ability to complete a 6 MWT without increasing LBP or radicular symptoms. 2. Patient to self-report ability to perform functional activities to facilitate return to work . 3. Patient will decrease their Modified Oswestry score by at least 10 points to indicate significant improvement in functional abilities and quality of life.
--- NOTE | 2025-05-16 13:57 | PTOPEVAL1 ---
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 Pt states he reiinjuried his back turning in bed. Pt is now states his R leg is numb. 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 Pt states his job requires, lifting, carrying, digging, and stand for prolonged periods . Pt states he feels he currently feel he is unable to work do to pain. Reported Pain Level Pain Score 8,4: Self Report Assessment PT Clinical Summary Patient presents to physical therapy with a primary issue of back pain with RLE radicular symptoms since last Wednesday. Pt shows signs consistent with nerve root impingment secondary to degenerative changes shown in xray. Patient demonstrates LE weakness, high pain levels, decreased mobility, abnormal posture, gait deficit , and decreased flexibility that limit their ability to perform activities of daily living and functional movements. Patient will benefit from skilled physical therapy to address the above listed deficits and return to prior level of function. Home exercise program instructed and written handout provided, exercises tolerated well with no adverse effects to note post-session. Patient was educated on importance of adherence to home exercise program. Patient was also educated on anatomy, prognosis, home modalities, and plan of care. Plan of Care Interventions Electrical Stimulation,Gait Training,Hot Pack/Cold Pack,Manual Therapy,Mechanical Traction,Neuro Re- education,Therapeutic Activities,Therapeutic Exercise,Other PT Services Indicated Yes Treatment Frequency and 2x week 10 visits Duration These treatments will address the objective and functional deficits as defined above. The patient will be advanced safely and appropriately in order for the patient to progress towards his/her prior level of function. Additional exercises will be introduced and as well as a comprehensive home exercise program upon discharge, if needed, ?to ensure carryover of functional gains achieved in the clinic. This treatment plan has been reviewed and agreement upon by the patient.
--- NOTE | 2025-05-18 16:20 | PCPTNOTE ---
Patient no showed his appointment this date. Patient was called and patient reports he knew that he had an appointment but chose to not call and cancel secondary to being in too much pain. Patient confirmed that he would be at his next scheduled appointment on 05/29 and was requested to call to cancel or reschedule if needed.
--- NOTE | 2025-06-06 16:00 | PCPTNOTE ---
Pt no called no showed for today treatment session. Pt was called and reminded about future appointment times.
--- NOTE | 2025-06-13 16:08 | PTOPDC ---
Assessment and note entered by Con Steward PT Evaluation Information Assessment Status Discharge Diagnosis Back pain with RLE radicular symptoms ICD-10 Condition Codes (PT) Radiculopathy, lumbar region M54.16 Onset may 07 2025 Subjective Information Pt reports he is still having intense back pain and numbness and tingling down his R leg. Pt states some days the pain is so intense he can barely walk and the pain will even radiate to his groin and testicles. Pt has noticed minimal difference with physical therapy and nothing seems to give him any relief. Pt states he is still unable to work due to the high pain levels and the physical nature of his job. Pt states he is worried because he is currently not able to manage his pain. Reported Pain Level Pain Score 5,8: Self Report Assessment PT Clinical Summary Patient's condition has made little to no changes in symptoms, mobility, strength, and functional tolerance to activities of daily living. Mechanical traction and pain reliving modalities were attempted but pt was unable to tolerate traction and noted no change in symptoms with positioning or use of modalities. Patient's physical therapy goals remain unmet with little to no progress made towards them. Patient to discharge from physical therapy this date and is recommended to seek further imaging and testing to rule out any structural damages or underlying pathologies. Patient to contact primary care provider if questions or concerns arise. Plan of Care PT Services Indicated No
== END 2025-06-14 07:43 | disposition home or self-care (01) ==
LOC: ANHGOSHPT 15:30
PROVIDERS: PCP Nurse Practitioner; Visit Provider Nurse Practitioner
DX: M54.16 Radiculopathy, lumbar region (principal)
CPT/HCPCS: 97014; 97110; 97140; 97161; G0283

== ENCOUNTER 2025-06-20 08:36 | Outpatient (CLI) | payer BC, MEDICAID, SELFPAY ==
--- NOTE | ~2025-06-20 | MR_ITS ---
MRI of the lumbar spine Clinical History: Radiculopathy Technique: Axial T2-weighted images, and sagittal T1-weighted, T2-weighted, and T2 fat-sat images wer e acquired. Findings: No acute fracture identified. No bone marrow signal abnormality seen. At L1-L2, there is no disc bulge or herniation. No spinal canal stenosis or neural foraminal narrowin g. At L2-L3, there is disc extrusion in the central to right paracentral region extending superiorly, mi ldly effacing the thecal sac in this region. There is probable impingement of the descending right L3 -L4 level nerve root. L3-L4, there is diffuse disc bulge/protrusion. There is mild facet hypertrophy. There is mild central canal stenosis. There is mild to moderate bilateral neural foraminal narrowing. At L4-L5, there is mild diffuse disc bulge. No spinal canal stenosis. There is moderate to advanced r ight neural foraminal narrowing. There is mild left neural foraminal narrowing. At L5-S1, there is diffuse disc bulge with superimposed central disc protrusion. There is mild facet arthropathy. No central canal stenosis. There is advanced right neural foraminal narrowing, and moder ate left neural foraminal narrowing. Paravertebral soft tissues are unremarkable. Impression: Right paracentral disc extrusion at L2-L3 with probable impingement of descending right L3-L4 level n erve root. Additional moderate degenerative changes, as above. Reviewed, dictated and finalized at [facility]. Impression: Right paracentral disc extrusion at L2-L3 with probable impingement of descendi ng right L3-L4 level nerve root. Additional moderate degenerative changes, as above.
== END 2025-06-20 08:37 | disposition home or self-care (01) ==
PROVIDERS: PCP Nurse Practitioner; Visit Provider Nurse Practitioner Adult Health
DX: M54.16 Radiculopathy, lumbar region (principal); M51.369 Other intervertebral disc degeneration, lumbar region without mention of lumbar back pain or lower extremity pain; M51.26 Other intervertebral disc displacement, lumbar region
CPT/HCPCS: 72148

== ENCOUNTER 2025-06-28 11:41 | Emergency (ER) | payer BC, MEDICAID, SELFPAY ==
[2025-06-28 12:01] VITALS: BP 140/90; PULSE 83; RESP 16; TEMP 36.5; O2SAT 100
--- NOTE | 2025-06-28 13:40 | ED_ITS ---
HPI - Extremity Problem General Chief complaint: Extremity Problem,Nontraumatic Stated complaint: numbness to feet x4 weeks, back pain Time Seen by Provider: 06/28/25 13:13 History of Present Illness HPI Narrative: Patient is a 45-year-old male who presents to the ER with low back pain and numbness in his feet. Ongoing over last month. Has been seen by Neurosurgery. Has had an MRI of his back. Most recently shows a disc protrusion impinging at L3-L4. Patient has not been on any medications. He is supposed to follow-up with neural surgery next month. No fevers chills or sweats. He has normal bowel movements. No saddle anesthesia. 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 Related Data Allergies Allergy/AdvReac Type Severity Reaction Status Date / Time No Known Allergies Allergy Verified 06/28/25 11:42 Review of Systems Constitutional: Constitutional: Reports no additional constitutional complaints Musculoskeletal: Musculoskeletal: Reports no additional musculoskeletal complaints Integumentary/Breasts: Skin/Breast: Reports system reviewed and no additional complaints, except as docu Neurologic: Reports system reviewed and no additional complaints, except as documented [facility] Past Medical History Medical History Hypertension Alcohol abuse Surgical History Surgical History S/P excision of lipoma Social History Social History Smoking packs per day: 0.5 Smoking cigarettes per day: 10.0 Smoking status: Current every day smoker Tobacco type: cigarettes Alcohol intake: current Drinks per week: 4 Alcohol use details: 3-4 times per week Substance use: current Substance use type: marijuana Other substance usage details: daily Do You Feel Safe in your Home?: Yes Lack of Transportation: No Lack of Food: Never True Current Housing: I Have Housing Concerned About Future Housing: No Difficulty Paying Gas/Electric Bills: No Difficulty Paying for Meds: No Currently Unemployed: No Education: High School Diploma/GED Difficulty w/ Childcare or Family Care: No Living arrangements: alone Occupation/Education: occupation Gender identity (if verbalized by the patient): Male Sexual Orientation (if Verbalized by the Patient): Straight or Heterosexual Spiritual care concerns: No Exam Narrative: GENERAL: Lying in bed face down and will not turn over to speak to the physician during exam and history, and in no acute distress. HEAD: Normocephalic, atraumatic. ENT: Mucous membranes moist. EXTREMITIES: Normal range of motion. No edema. Back: No midline tenderness the T or L-spine. Mild paraspinal tenderness of the mid and upper lumbar regions bilaterally. SKIN: Warm, dry, no rash. NEURO: Alert and oriented x3. PSYCH: Normal mood and affect. Course Course Emergency Course: Discussed MRI results with patient. Discharged with Medrol Dosepak and muscle relaxers. I will not give him a prolonged time off work as this is a chronic issue. Vital Signs Vital signs: Vital Signs Temperature 97.7 F 06/28/25 12:01 Pulse Rate 83 06/28/25 12:01 Respiratory Rate 16 06/28/25 12:01 Blood Pressure 140/90 06/28/25 12:01 Pulse Oximetry 100 06/28/25 12:01 Oxygen Delivery Room Air 06/28/25 12:01 Temperature 97.7 F 06/28/25 12:01 Pulse Rate 83 06/28/25 12:01 Respiratory Rate 16 06/28/25 12:01 Blood Pressure 140/90 06/28/25 12:01 Pulse Oximetry 100 06/28/25 12:01 Oxygen Delivery Room Air 06/28/25 12:01 Discharge Plan Discharge Clinical Impression: Low back pain Patient Disposition: Home Condition: Stable Instructions: Lumbar Radiculopathy (ED), Lower Back Exercises (ED) Additional Instructions: Please return to the emergency department if you develop severe pain that is not controlled by pain medications or if you are unable to walk because of pain or weakness. Return to the emergency department immediately if you develop fevers, loss of bowel or bladder control (dribbling of urine or having accidents you wouldn't normally have), inability to urinate, numbness of your genital or anal area, or weakness/numbness of your legs or arms as these could all be signs of a serious medical emergency. Patient Language: Japanese Prescriptions: New methylprednisolone [Medrol (Noe)] 4 mg tablets,dose pack See Rx Instructions .ROUTE .COMPLEX Qty: 21 0RF Rx Instructions: orally per package directions cyclobenzaprine 10 mg tablet 10 mg PO TID PRN (Reason: muscle spasm) Qty: 20 0RF No Action losartan 25 mg tablet 25 mg PO DAILY Qty: 90 2RF pantoprazole [Protonix] 40 mg tablet,delayed release (DR/EC) 40 mg PO HS 28 Days Qty: 28 0RF methocarbamol 750 mg tablet 750 mg PO HS Qty: 14 0RF Follow-up/Referrals: Melanie Storey NP [Primary Care Provider] - 1 Week Stand Alone Forms: Work/School Release IP
[2025-06-28 14:07] VITALS: BP 119/80; PULSE 61; RESP 20; O2SAT 98
== END 2025-06-28 14:09 | disposition home or self-care (01) ==
PROVIDERS: Emergency Provider Emergency Medicine; PCP Nurse Practitioner
DX: M54.50 Low back pain, unspecified (principal); I10 Essential (primary) hypertension; F17.210 Nicotine dependence, cigarettes, uncomplicated
CPT/HCPCS: 99283